=== PATIENT | female | born 1980 | race Caucasian/White ===

== ENCOUNTER 2025-05-12 07:39 | Outpatient (CLI) | payer OTHER, SELFPAY ==
--- OUTSIDE RECORDS SUMMARY | 2025-04-19 04:15 | XMS_ITS | Continuity of Care Document ---
Author Organization [facility] Phone Care Team Providers Care Denture Technician Name Role Phone EVERETT LOUIEAIYANA Dewey Admitting DECLINED, PCP Primary Care Unavailable LIBANMUKUND KHALIL Maco Unavailable MUKUND LOUIE Primary Attending ALLERGIES AND ADVERSE REACTIONS ALLERGIES AND ADVERSE REACTIONS Code System Allergy Substance Adverse Reaction Date Reaction (Severity) Comment Status Reported By Updated By [id number] SNOMED CT Penicillins Adverse reaction to substance Not Specified active [id number] on September 26, 2024 2:53:32 AM [facility] [email or web address]] RESULTS Patient: MICKEY DUVAL Date of : February 24 0 LABORATORY RESULTS Information is not available LABORATORY NARRATIVE RESULTS Information is not available RADIOLOGY RESULTS ORDER 100: HERB DIAG MAMMO W CAD RT (LOINC: [id number]) ORDER DATE: April 15, 2025 12:03:00 PM [facility] [email or web address]] PERFORMING LAB: [address] [id number] Final Result Date: April 15 12:23:[address] [place] [address] Name: MUKUND AREVALO Exam Date: 04/15/2025 : 1980 Age 45 years Gender: F Physician: MUKUND LOUIE Facility: [facility] Facility HSV: Outpatient Exam: HERB DIAG MAMMO W CAD RT Exam: 1.Right Diagnostic Mammogram with 2D and 3D (tomosynthesis)imaging 2.Right Breast Ultrasound Clinical indication: Recall upper inner right breast focal asymmetry Comparison: Exams to 03/17/2025 TECHNIQUE: Diagnostic Right 2D mammography and 3D (tomosynthesis) imaging were performed.Targeted ultrasound assessing mace-scale and color flow performed. BREAST DENSITY:The breasts are heterogeneously dense, which may obscure small masses. FINDINGS: Mammography: Persistent upper inner right breast focal asymmetry further evaluated with sonography Ultrasound: Right breast, 2:00, 7 cm from the nipple, there is a 14 x 9 x 13 mm hypoechoic mass/nonmass area corresponding to the inner asymmetry IMPRESSION: Indeterminate right breast 2:00 mass/nonmass hypoechoic area corresponding to the inner asymmetry Recommendation: Right breast ultrasound-guided biopsy with correlation with clip placement. The results of this report will be reported to the patient by letter in layman's terms. ACR BI-RADS:4 - Suspicious abnormality Mammography does not detect approximately 10-15% of breast cancers. A normal mammogram does not exclude breast cancer in a patient with palpable mass or abnormal findings on physical examination. These patients may need biopsies and when clinically indicated a biopsy should not be postponed because of a normal mammogram. If the patient has breast surgery or biopsy, FDA/SA Regulatory Guidelines mandate that this facility receive pathologic results for follow-up correlation. Electronically signed by: Leroy Mehta MD 04/15/2025 08:48 AM EDT RP Dictated By: Leroy Mehta Transcribed By: Transcribed On: 04/15/2025 8:23 AM Legally authenticated by ZOEY THOMAS MD 2025-04-15 08:23:00 Electronically signed by: Leroy Mehta 04/15/2025 Thank you for referring MUKUND AREVALO to [facility]. Legally authenticated by ZOEY THOMAS MD 2025-04-15 08:23:00 ORDER 200: US BREAST LIMITED RT (LOINC: [id number]) ORDER DATE: April 15, 2025 12:03:00 PM [facility] [[email or web address]] PERFORMING LAB: [address] [id number] Final Result Date: April 15 12:45:[address] [place] [address] Name: MUKUND AREVALO Exam Date: 04/15/2025 : 1980 Age 45 years Gender: F Physician: MUKUND LOUIE Facility: [facility] Facility HSV: Outpatient Exam: US BREAST LIMITED RT Exam: 1.Right Diagnostic Mammogram with 2D and 3D (tomosynthesis)imaging 2.Right Breast Ultrasound Clinical indication: Recall upper inner right breast focal asymmetry Comparison: Exams to 03/17/2025 TECHNIQUE: Diagnostic Right 2D mammography and 3D (tomosynthesis) imaging were performed.Targeted ultrasound assessing mace-scale and color flow performed. BREAST DENSITY:The breasts are heterogeneously dense, which may obscure small masses. FINDINGS: Mammography: Persistent upper inner right breast focal asymmetry further evaluated with sonography Ultrasound: Right breast, 2:00, 7 cm from the nipple, there is a 14 x 9 x 13 mm hypoechoic mass/nonmass area corresponding to the inner asymmetry IMPRESSION: Indeterminate right breast 2:00 mass/nonmass hypoechoic area corresponding to the inner asymmetry Recommendation: Right breast ultrasound-guided biopsy with correlation with clip placement. The results of this report will be reported to the patient by letter in layman's terms. ACR BI-RADS:4 - Suspicious abnormality Mammography does not detect approximately 10-15% of breast cancers. A normal mammogram does not exclude breast cancer in a patient with palpable mass or abnormal findings on physical examination. These patients may need biopsies and when clinically indicated a biopsy should not be postponed because of a normal mammogram. If the patient has breast surgery or biopsy, FDA/SA Regulatory Guidelines mandate that this facility receive pathologic results for follow-up correlation. Electronically signed by: Leroy Mehta MD 04/15/2025 08:48 AM EDT Dictated By: Leroy Mehta Transcribed By: Transcribed On: 04/15/2025 8:45 AM Legally authenticated by ZOEY THOMAS MD 2025-04-15 08:45:00 Electronically signed by: Leroy Mehta 04/15/2025 Thank you for referring MUKUND AREVALO to [facility]. Legally authenticated by ZOEY THOMAS MD 2025-04-15 08:45:00 PATHOLOGY NARRATIVE RESULTS Information is not available MICROBIOLOGY RESULTS No Micro Labs/Results Exist for Patient BLOOD ADMIN RESULTS Information is not available MEDICATIONS HOME MEDICATIONS Status RXNORM NDC Medication Dose Route Frequency Dates Comments Reported By Updated By Drug Treatment Unknown DISCHARGE MEDICATIONS Status RXNORM NDC Medication Dose Route Frequency Dates Comments Physician Updated By No Discharge Medication Info rmation Available INPATIENT MEDICATIONS Status RXNORM NDC Medication Dose Route Frequency Rat e Quantity Dates Comments Physician Updated By No Inpatient Medication Info rmation Available SOCIAL HISTORY SOCIAL HISTORY SNOMED-CT Social History Element Description Effective Dates Offered Cessation Comment UpdatedBy [id number] Smoking Status Unknown If Ever Smoked SOCIAL HISTORY - Gender Sex: Female SOCIAL HISTORY - Status : status i nformation is not available Intention in Next Year: intention information is not available SOCIAL HISTORY - Sexual Behavior Sexual Orientation Gender Identity SNOMED-CT Description SNO MED -CT Description Activity Level No of Partners Partner Type UpdatedBy Information is not available HEALTH CONCERNS Problems Concern Status Health Concern problem infor mation not available. Smoking Status Status Years Used Consumed packs p er day Health Concern smoking histo ry information not available. Family History Concern Status Health Concern family histor y information not available. ENCOUNTERS ENCOUNTER INFORMATION Reason for Visit R92.8 Admission April 15, 2025 11:55:[address] [address] Discharge April 15, 2025 5:55:00 PM [facility] [email or web address]] DISC HARGED TO HOME OR SELF CARE ENCOUNTER DIAGNOSES Notes information is not torsten ilable. Code System Diagnosis Onset Date Diagnosis information is not available. ABSTRACT DIAGNOSES Code System Diagnosis Updated By R92.8 ICD10 OTHER ABNORMAL A ND INCONCLUSIVE FINDINGS ON DIAGNOSTIC IMAGING OF BREAST [id number] on March 30, 2025 3:05:07 PM [facility] [email or web address]] R92.8 ICD10 OTHER ABNORMAL A ND INCONCLUSIVE FINDINGS ON DIAGNOSTIC IMAGING OF BREAST [id number] on April 19, 2025 8:15:02 AM [facility] [email or web address]] CARE TEAM Care Denture Technician Role MUKUND LOUIE Admitting PCP DECLINED Primary Care MUKUND LOUIE Referring MUKUND LOUIE Primary Attending CARE TEAM CARE claims coordinator Role on Team Status Start Date End Date Update d By DECLINED PCP PCP normal April 15, 2025 4:00:00 AM [facility] [[email or web address]] April 15, 2025 5:55:00 PM [facility] [[email or web address]] [id number] on April 15, 2025 6:21:00 PM [facility] [[email or web address]] ESTRELLITA CARLSON MD PCP normal March 30 3:05:08 PM [facility] [[email or web address]] April 15, 2025 4:00:00 AM [facility] [[email or web address]] [id number] on April 15, 2025 6:21:00 PM [facility] [email or web address]] LIBAN Dewey APRN Referring normal March 30, 2025 3:05:08 PM [facility] [[email or web address]] April 15, 2025 5:55:00 PM [facility] [[email or web address]] [id number] on April 15, 2025 6:21:00 PM [facility] [[email or web address]] LIBAN Dewey APRN Attending normal March 30, 2025 3:05:08 PM [facility] [[email or web address]] April 15, 2025 5:55:00 PM [facility] [[email or web address]] [id number] on April 15, 2025 6:21:00 PM [facility] [email or web address]] LIBAN Dewey APRN Admitting normal March 30, 2025 3:05:08 PM [facility] [[email or web address]] April 15, 2025 5:55:00 PM [facility] [[email or web address]] [id number] on April 15, 2025 6:21:00 PM [facility] [[email or web address]]
--- NOTE | 2025-05-12 | US_ITS ---
FINAL REPORT CLINICAL HISTORY: ABNORMAL MAMM -- RT BREAST MASS - DR.ALEX PRADO FINDINGS: ULTRASOUND-GUIDED RIGHT BREAST CORE BIOPSY TECHNIQUE: Limited images were obtained to localize region of interest. The right breast was prepped in a routine sterile fashion and locally anesthetized with 1% lidocaine. Standard written informed consent was obtained. The biopsy needle was positioned within the outer periphery of the lesion. Subtle area of interest was localized at approximately 2:00. A total of 3 passes were made with a 16 gauge core biopsy needle. A biopsy marker clip was deployed in satisfactory position. Postbiopsy mammogram showed postbiopsy changes with clip in satisfactory position. Procedure was well tolerated . CONCLUSION: 1. Technically successful ultrasound guided core biopsy of right breast lesion as above. 2. Biopsy marker clip deployed Authenticated and ERN
--- OUTSIDE RECORDS SUMMARY | 2025-05-12 07:43 | XMS_ITS | Clinical Summary ---
Author Organization Healthcare Address [address] [place] [address] Care Team Providers Care Store Cashier Name Role Phone Unavailable Primary Care Provider Unavailabl e Family History Medical History Relation Name Comments Cardiac disorder Father Diabetes Mother Relation Name Status Comments Father Mother Social History Tobacco Use Types Packs/Day Years Used Date Smoking Tobacco: Every Day Alcohol Use Standard Drinks/Week Comments No 0 (1 standard drink = 0.6 oz pur e alcohol) Comments Unknown Sex and Gender Information Value Date Recorded Sex Assigned at Not on file Legal Sex Female 8:23 PM EDT Gender Identity Not on file Sexual Orientation Not on file Last Filed Vital Signs Vital Sign Reading Time Taken Comments Blood Pressure - - Pulse - - Temperature - - Respiratory Rate - - Oxygen Saturation - - Inhaled Oxygen Concentration - - Weight 105 kg (230 lb 13.2 oz) 03/05/2016 10:47 AM EDT Height 162.6 cm (5' 4 ) 01/30/2016 11:22 AM EST Body Mass Index 39.62 01/30/2016 11:22 AM EST Plan of Treatment Not on file
--- OUTSIDE RECORDS SUMMARY | 2025-05-12 07:44 | XMS_ITS | Patient Health Record ---
Author Organization [facility] Address [address] [place] [address] Care Team Providers Care Animal Chiropractor Name Role Phone payal lerma Primary Care Provider [place], [id number] Felipa Unavailable [phone] Courtney Briggs Unavailable [phone] Allergies Allergen (clinical drug ingredient) Drug/Non Drug Allergy documented on EMR Reaction Allergy Type Onset Date Status Penicillin rash Drug Allergy Active Results Component Value Reference Range Notes Flu/COVID Rapid Antigen (IH) Reviewed date:11/15/2024 10:05:57 AM Interpretation:Positive Performing Lab: Notes/Report: Positive Flu A negative Negative - Positive Flu B positive Negative - Positive SARS CoV 2 positive Negative - Positive Rapid Strep Screen (IH) Reviewed date:02/11/2025 10:57:58 AM Interpretation:Negative Performing Lab: Notes/Report: Negative Negative NEG Reason For Referral No Information Medications Medication SIG (Take, Route, Frequency, Duration) Notes Start Date End Date Status Fluticasone Furoate 27.5 MCG/SPRAY 2 sprays (1 spray in each nostril) Nasally Once a day for 30 days 02/11/2025 Active Albuterol Sulfate HFA 108 (90 Base) MCG/ACT 1 puff as needed Inhalation every 4 hrs for 30 days 04/17/2024 Not-Taking Stahist AD 25-60 MG 1 tablet as needed Orally every 8 hrs for 15 days 09/09/2023 Not-Taking Albuterol Sulfate HFA 108 (90 Base) MCG/ACT 1 puff as needed Inhalation every 4 hrs for 30 days 10/02/2023 Not-Taking Wellbutrin SR 150 MG 1 tablet in the mor fernando Orally Once a day 02/11/2025 Active Strattera 25 MG 1 capsule Orally Twi ce a day Active Levothyroxine Sodium 175 MCG 1 tab(s) orally once a day Active Flonase Allergy Relief 50 MCG/ACT 1 spray(s) intranasally once a day for 30 day(s) 03/16/2019 Not-Taking Adderall 10 MG 1 tab(s) orally 2 ti mes a day Not-Taking Levemir 100 UNIT/ML 0 subcutaneously 16 units Not-Taking Azithromycin 250 MG 2 tablets on the day, then 1 tablet daily for 4 days orally once a day for 5 day(s) 03/16/2019 Not-Ambar snow Social History Tobacco Use: Social History Observation Description Date Details (start date - stop date) Never Smoker NA - NA Tobacco Control (Standard) Question Answer Notes Tobacco use: Nonsmoker Section Notes: patient dosent use tobacco p roducuts patient dosent use tobacco p roducuts patient dosent use tobacco p roducuts patient dosent use tobacco p roducuts patient dosent use tobacco p roducuts patient dosent use tobacco p roducuts patient dosent use tobacco p roducuts Problems Problem Type SNOMED Code ICD Code Onset Dates Problem Status W/U Status Risk Notes Problem [id number] Elevated blood pressure reading without diagnosis of hypertension (R03.0) Active confirmed Problem Anxiety (54964046) Anxiety (F41.9) Active confirmed Problem Hypothyroidism (78657801) Hypothyroidism (E03.9) Active confirmed Problem Type II diabetes mellitus well controlled (052115169) Diabetes type 2, controlled (E11.9) Active confirmed Problem Obesity (773956100) Obesity (BMI 30-39.9) (E66.9) Active confirmed Problem Attention deficit hyperactivity disorder (920937727) ADHD (F90.9) Active confirmed Problem Depression (519919277) Depression (F32.A) Active confirmed Vital Signs Temperature 97.7 degrees Fahrenheit 02/11/2025 Respiratory Rate 19 /min 02/11/2025 Blood pressure diastolic 82 mm Hg 02/11/2025 Height 064 in 02/11/2025 Blood pressure systolic 126 mm Hg 02/11/2025 Weight 0185 lbs 02/11/2025 BMI 31.75 kg/m2 02/11/2025 Encounters Encounter Location Date Provider Diagnosis [address] [address] [facility] ; Acute COVID-19 U07.1 ; Elevated blood pressure reading without diagnosis of hypertension R03.0 and Obesity (BMI 30-39.9) E66.[id number] [address] 11/15/2024 Felipa [place] [address] [address] 02/11/2025 Courtney Briggs Nasopharyngitis acut e J00 and Sore throat J02.9 Assessments Encounter Date Diagnosis (ICD Code) Assessment Notes Treatment Notes Treatment Clinical Notes Section Notes 11/15/2024 Influenza B (ICD-10 - J10.1) Influenza (Flu): Care Instructions material was published 11/15/2024 Acute COVID-19 (ICD-10 - U07.1) Coronavirus (COVID-19): Care Instructions material was published Declines treatment for both Flu and covid 19 at todays visit. 02/11/2025 Sore throat (ICD-10 - J02.9) Warm salt water gargles three times a day to help reduce throat inflammation Warm tea with honey as needed to soothe throat 02/11/2025 Nasopharyngitis acute (ICD-10 - J00) Take OTC cold and flu medication to treat symptoms as directed Take flonase nasal spray routinely as directed during and after illness symptoms have resolved to help managed seasonal allergies Tylenol or Advil for fever/chills or body aches if these develop Ensure maintaining adequate hydration during illness Follow up 2-3 days for persistent or worsening symptoms 11/15/2024 Elevated blood pressure reading without diagnosis of hypertension (ICD-10 - R03.0) Learning About High Blood Pressure material was published 11/15/2024 Obesity (BMI 30-39.9) (ICD-10 - E66.9) Learning About Obesity material was published Plan Of Treatment Pending Test Test Name Order Date STREPTOCOCCUS, GROUP A CULTURE 4 Insurance Providers Payer Name Payer Address Payer Phone Subscriber Number Group Number Insured Name Patient Relationship to Insured Coverage Start Date Coverage End Date [employer] [address] JESSICA CAMARENA, JOHN [phone] [id number] [address] [place], [place] [address]Esther cummins Self - patient is the insured Medical (General) History Medical History History ICD Code Hypothyroidism E03.9 Depression F32.A Anxiety F41.9 ADHD F90.9 Diabetes type 2, controlled E11.9 Surgical History Surgery Date(Month/Year) gastric bypass 2022 C section 2016 gallbladder 2014 Hospitalization History Reason Date(Month/Year) gastric bypass
--- OUTSIDE RECORDS SUMMARY | 2025-05-12 07:44 | XMS_ITS | Clinical Summary ---
Author Organization [employer] Address [address] [place] [address] Care Team Providers Care Garment Looper Name Role Phone Claude Genao MD Primary Care Provider [phone] Allergies Active Allergy Reactions Criticality Noted Date Comments Penicillins Hives High 09/16/2010 Medications levothyroxine (SYNTHROID, LEVOTHROID) 175 MCG tablet Take 1 tablet (175 mcg total) by mouth daily. 12/27/2022 Active fluticasone propionate (FLONASE) 50 mcg/actuation nasal spray 1 spray by Nasal route daily. Active omeprazole (PriLOSEC) 20 MG capsule Take 1 capsule (20 mg total) by mouth in the morning. 30 capsule 2 04/16/2023 Active tiZANidine (ZANAFLEX) 4 MG tablet Take 1 tablet (4 mg total) by mouth 2 (two) times daily. 04/09/2023 Active albuterol HFA (VENTOLIN HFA) 90 mcg/actuation inhaler 1 puff every 4 (four) hours as needed. 10/02/2023 Active Active Problems Problem Noted Date Diagnosed Date Depression 04/15/2023 Hypothyroid 04/15/2023 Diabetes mellitus 04/15/2023 Class 2 obesity in adult 04/15/2023 Obesity 04/15/2023 Social History Tobacco Use Types Packs/Day Years Used Date Smoking Tobacco: Never Smokeless Tobacco: Never Tobacco Cessation:Counseling Given: Not Answered Alcohol Use Standard Drinks/Week Comments Not Currently 0 (1 standard drink = 0.6 oz pur e alcohol) Social Interpersonal Safety Answer Date Record ed Family or friends hurt you Not on file 12/06 Family or friends insult you Not on file 10/2024 Family or friends threaten you Not on file 0 12/06/2023 Family or friends scream or curse at you Not on file 12/06/2023 Housing Stability Answer Date Recorded Living situation today Not on file Living situation problems Not on file 2023 Food Insecurity Answer Date Recorded Food run out past 12 months Not on file 11/25 Food did not last past 12 months Not on file 12/06/2023 Employment Answer Date Recorded Help finding and keeping a job Not on file 0 12/06/2023 Family and Community Support Answer Gaudencio e Recorded Help with Day to Day Activities Not on file 12/06/2023 Feeling Lonely or Isolated Not on file 12/06 Educational Attainment Answer Date Madi rded Speak language other than Mosotho at home Not on file 12/06/2023 Want help with school or training Not on file 12/06/2023 Depression Answer Date Recorded PHQ-2 Risk Not on file 12/06/2023 Disabilities Answer Date Recorded Difficulty concentrating Not on file 024 Difficulty doing errands alone Not on file 0 12/06/2023 Substance Use Answer Date Recorded Used prescription meds for non-medical reasons N ot on file 12/06/2023 Used illegal drugs past 12 months Not on file 12/06/2023 Comments Unknown Sex and Gender Information Value Date Recorded Sex Assigned at Not on file Legal Sex Female 7:17 PM CDT Gender Identity Not on file Sexual Orientation Not on file Last Filed Vital Signs Vital Sign Reading Time Taken Comments Blood Pressure 120/80 10/29/2023 8:37 AM EST Pulse 68 10/29/2023 8:37 AM EST Temperature 36.9 C (98.5 F) 04/23/2023 8:49 AM EDT Respiratory Rate 16 04/16/2023 9:45 AM EDT Oxygen Saturation 98% 04/16/2023 9:45 AM EDT Inhaled Oxygen Concentration - - Weight 83.8 kg (184 lb 12.8 oz) 10/29/2023 8:37 AM EST Height 162.6 cm (5' 4 ) 03/11/2023 8:41 AM EDT Body Mass Index 31.72 03/11/2023 8:41 AM EDT Plan of Treatment Health Maintenance Due Date Last Done Comments CT Colonography 1980 Colonoscopy 1980 Colorectal Cancer Screening 1980 Diabetic Kidney Health Evalu ation (KED) 1980 FOBT/FIT 1980 Fit-DNA (Cologuard) 1980 Sigmoidoscopy 1980 Diabetic Eye Exam 02/24/1990 Diabetic foot exam 02/24/1990 HIV Screening 02/24/1995 Hepatitis C Screening 02/24/1998 DTAP/TDAP/TD VACCINES (1 - Tdap) 02/24/1999 Pneumococcal Vaccine: 0-49 Y ears (1 of 2 - PCV) 02/24/1999 Pap Smear 02/24/2001 Breast Cancer Screening 2020 Hemoglobin A1C 04/29/2024 10/29/2023, 0711/2022, 03/04/2023 COVID-19 VACCINE ( season) 07/26/202409/2022, 01/27/2021 Tobacco Cessation Counseling and Screening (12+) 10/29/2024 10/29/2023 Influenza Vaccine (Season Ended) 2025 09/23/20 18 Lipid Panel 03/04/2026 03/04/2023 Procedures Procedure Name Priority Date/Time Associated Diagnosis Comments HEMOGLOBIN A1C Routine 10/29/2023 9:26 AM EST Class 1 obesity due to excess calories without serious comorbidity with body mass index (BMI) of 31.0 to 31.9 in adult LIPID PANEL Routine 03/04/2023 10:13 AM EDT Pre-op evaluation Morbid obesity (HCC) Hypothyroidism, unspecified type Gastroesophageal reflux disease, unspecified whether esophagitis present Type 2 diabetes mellitus with hyperosmolarity without coma, without long-term current use of insulin (HCC) from Last 3 Months or Most Recently Relevant to Health Maintenance Results * (ABNORMAL) Hemoglobin A1c (10/29/2023 9:26 AM EST) Hemoglobin A1C 6.6(H) 4.2 - 6.3 % 10/29/2023 11:19 AM EST [facility] Comment: Hemoglobin A1C levels are related to mean glucose during the preceding 2-3 months. Less than 7% demonstrates glycemic control in diabetic patients. Hemoglobin AlC % Suggested Diagnosis > or = 6.5 Diabetic 5.7 - 6.4 Prediabetic <5.7 Non-diabetic eAVG Glucose 142.72 mg/dL 10/29/2023 11:19 AM EST [facility] Blood Venipuncture / Unknown 10/29/2023 9:26 AM EST 10/29/2023 9:27 AM EST us Girish Napoles MD LAB BLOOD ORDERABLES Final Resu lt [facility] [address] [phone] * (ABNORMAL) Lipid panel (03/04/2023 10:13 AM EDT) Triglycerides 418(H) 0 - 249 mg/dL 03/04/2023 1:02 PM EDT [facility] Cholesterol 274(H) 0 - 199 mg/dL 03/04/2023 1:02 PM EDT [facility] Comment: 200 to 239 mg/dL = Moderate (borderline) >239 mg/dL = High HDL Cholesterol 43 >=40 mg/dL 03/04/2023 1:02 PM T [facility] Comment: >=60 mg/dL = Desirable <40 mg/dL = Increased Risk All other components are listed individually or are calculations VLDL Cholesterol 03/04/20 1:02 PM EDT [facility] Comment:Unable to Calculate VLDL due to Triglyceride >399 mg/dL Cholesterol/HDL ratio 6.4(H) 0.0 - 3.2 03/04/2023 1:02 PM EDT [facility] LDl/HDL Ratio 03/04/2023 1:02 [facility] Comment:Unable to calculate; LDL not reported. RISK COMP 6 03/04/2023 1:02 PM [facility] LDL Cholesterol, Calculated 03/04/2023 1:02 PM [facility] Comment:Unable to Calculate LDL due to Triglyceride >399 mg/dL Blood Venipuncture / Unknown 03/04/2023 10:13 AM EDT 03/04/2023 12:17 PM EDT us Monique Theodore PA-C LAB BLOOD ORDERABLES Fi nal Result [facility] [address] [place] [id number] [phone] from Last 3 Months or Most Recently Relevant to Health Maintenance Insurance BLUE CROSS/BLUE SHIELD Advance Directives For more information, please contact: [phone] * Full Code (Latest Code Status on File) Date Activated Date Inactivated Comments 04/15/2023 2:29 PM 04/16/2023 3:15 PM * Full Code Date Activated Date Inactivated Comments 04/15/2023 7:59 AM 04/15/2023 2:29 PM Care Teams Garment Looper Relationship Specialty Start Date End Date Claude Genao MD [address] [place] [address] PCP - General Emergency Medicine 01/15/23
--- OUTSIDE RECORDS SUMMARY | 2025-05-12 07:44 | XMS_ITS | Data Portability ---
Author Organization [facility] NORM Peña PALMER CLOS[facility] Address [address] [facility] [place] [address] Assessment No assessment recorded. Plan of Treatment Reminders Order Date Submit Date Provider Last Modified By Organization Details Last Modified Time Details Appointments None recorded. Lab None recorded. Referral None recorded. Procedures None recorded. Surgeries None recorded. Imaging None recorded. Medication Orders Maxalt-MIXER TENDER 10 mg disintegra ting tablet 2016 017 INTERFACE [facility] [id number], [address] [place], [address], 7 09:22:05 tizanidine 4 mg tablet 2016 017 INTERFACE [facility] [id number], [address] [place], [address], 7 09:22:03 Patient TargetsNo targets recorded. Patient Instructions Encounter Date Encounter Id Patient Instructions Last Modified By Organization Details Last Modified Time 09/09/2017 [id number] A healthy lifestyle: care instructions ALBERT Not available 09/11/2017 19:35:54 migraine aura without a headache: care instructions ALBERT Not available 09/11/2017 19:39:59 Continue Zanafle x 4 mg at bedtime. Maxalt MIXER TENDER 10 mg as needed. Return in one year. [email or web address] Not available 09/09/2017 09:22:13 Reason for Referral None Reported. Problems Name Problem SNOMED Code Status Onset Date Resolution Date Notes Provider Name and Address Organization Details Recorded Time Migraine with aura 2228404 Active 2015 From Automated Load;Provi lakshmi: Gabo De Dios; atus: Active Not Available [facility] 7 07:39:31 Neuropath y 465653781 Active 2016 Altagracia beckham [facility] 7 09:12:00 Problem Notes None recorded. Procedures Surgical History Date Name Laterality Status Provider Name and Address Organization Details Recorded Time Cholecystectomy completed Coco Madrigal [facility] 09/05/2017 10:31:53 Imaging Results None recorded. Procedure Notes None recorded. Medical Equipment None Reported. Allergies Allergen ID Allergen Name Allergen Category Reaction Reaction Severity Criticality Documentation Date Start Date Code Code System Note Provider Name and Address Organization Details Recorded Time 168709 Product containin g penicilli n (product) medicatio n Not available Not available Not available 10/19/20162009 46767 8001 SNOMED Comme nt: Creat ed By: Myles Rice aldo Date: 09/16 12:04 :52 PM; Not Available [facility] 6 10:24:01 Medications Name Sig Start Date Stop Date Status Note LastModified by Organization Details LastModified Time Maxalt-MIXER TENDER 10 mg disintegra ting tablet 1 tablet daily as needed for headache 2016 active Duration: 6 days;Freq uency: daily;Alt Frequency : prn pain;Medi cation Descripti on: rizatript an; Dosage:1; Route:ora l; refills:1 2; Quantity: 6 tablet, disintegr ating Not Available Not Available Not Available glyburide 5 mg tablet Daily active Duration: 30 days;Freq uency: daily;Med ication Descripti on: glyburide ; Dosage:1; Route:ora l; refills:0 ; Quantity: 30 tablet Not Available Not Available Not Available tizanidine 4 mg tablet Take 1 at bedtime to prevent migraine 2016 active Medicatio n Descripti on: tizanidin e; Route:ora l; refills:0 Not Available Not Available Not Available metformin 1,000 mg tablet Two times a day active Frequency : bid;Alt Frequency : with food;Medi cation Descripti on: metformin ; Dosage:1; Route:ora l; refills:5 ; Quantity: 60 tablet Not Available Not Available Not Available Synthroid Daily active Frequency : daily;Med ication Descripti on: levothyro xine; refills:0 ; Quantity: 30 Not Available Not Available Not Available Levemir U-100 Insulin 100 unit/mL subcutaneo us solution active Medicatio n Descripti on: insulin detemir; Route:sub cutaneous ; refills:0 Not Available Not Available Not Available Vitals Date Recorded Body height Body mass index (BMI) Body weight Heart rate Respiratory rate Systolic blood pressure Diastolic blood pressure Provider Name and Address Organization Details Last Updated DateTime 7 165.1 cm 8.3 kg/m2 05700.6 2 g 78 /min 17 /min 122 mm[Hg] 67 mm[Hg] GABO DE DIOS MD [address] [place] [address], [id number] [place] [address] 7 09:19:05 Social History Question Answer Notes LastModified by Organizat ion Details LastModified Time Tobacco Smoking Status Never Smoker Coco Madrigal [facility] 09/05/2017 10:31:27 Live Alone Or With Others? With Others Information not available 09/05/2017 Marital Status Informatio n not available 09/05/2017 What Was The Date Of Your Most Recent Tobacco Screening? 09/05/2017 Information n ot available 01/12/2020 Sex: Unknown Functional Status Question Answer Note LastModified by Organizat ion Details LastModified Time What is your level of alcohol consumption? Occasional Information not available 09/05/2017 Mental Status None recorded. Family History Relationship Description Onset Age of this Age Resolved Age Notes LastModified by Organization Details LastModified Time Maternal Grandmother Diabetes mellitus Not available 2016 10:31:17 Maternal Grandmother Heart disease Not available 2016 10:31:21 Medical History Condition Response Depression Y Migraines Y High Cholesterol Y Diabetes Y Gynecological HistoryNo gynecological history recorded. Obstetrics History GPAL:G 0 P 0 0 0 0 Past Encounters Encounter ID Performer Location Encounter Start Date Encounter Closed Date Diagnosis/Indication Diagnosis SNOMED-CT Code Diagnosis ICD10 Code Diagnosis Note [id number] GABO DE DIOS MD NEUROLOGY [facility] [address] [place] [address] 09/09/2017 09:07:55 09/09/2017 09:23:14 Migraine with aura 3103761 G43.109 The patient is a 37-year-ol d white female who has episodic migraine. Health Concerns Section Related Observation LastModified by Organization Detai ls LastModified Time None Recorded Concern Status LastModified by Organization Details LastModified Time None Recorded Advance Directives Directive None Recorded Payers Insurance Date Sequence Insurance Name Policy Number Policy Martel Covered Member ID Martel Member ID Guarantor Name 01/30/2019 1 *SELF PAY* Sa marcelo Fightmaster 10/19/2020 1 [place] [id number] Esther Fightmaster [id number] Esther Fightmaster Notes Date Note Type Note Provider Name and Address Organization Details Recorded Time 09/09/2017 text/html 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 She has migraine. She also has diabetes. She has a insulin pump. Her hemoglobin A1c has increased to 7. She had gained weight. She has migraine. She takes Zanaflex 4 mg at bedtime as headache prophylaxis. Maxalluisa MIXER TENDER works. She is averaging 1 headache a month. She has a son who is almost 2 years old. Her work is stressful.. GABO DE DIOS MD [facility] [place], [address], [facility] 09/09/2017 09:22:52 OBGyn Episode No OBEpisode recorded.
--- OUTSIDE RECORDS SUMMARY | 2025-05-12 07:44 | XMS_ITS | Data Portability ---
Author Organization [place] - Hugo camargo MD, Main Office Address [address] [facility] [address] [place] [address] Care Team Providers Care Automotive Technician Name Role Phone JAIR TOLENTINO Primary Care Provider Assessment No assessment recorded. Plan of Treatment Reminders Order Date Submit Date Provider Last Modified By Organization Details Last Modified Time Details Appointments None recorded. Lab None recorded. Referral None recorded. Procedures None recorded. Surgeries None recorded. Imaging None recorded. Medication Orders propranolol 20 mg tablet 2017 018 [facility] [id number], [address] [place], [address], 9 09:59:53 rizatriptan 10 mg disintegrat ing tablet [address] [facility] [id number], [address] [place], [address], 9 09:59:56 Patient TargetsNo targets recorded. Patient Instructions Encounter Date Encounter Id Patient Instructions Last Modified By Organization Details Last Modified Time 09/16/2018 [id number] MIGRAINE EDUCATION Not availa ble 09/16/2018 15:24:20 Finding has been discussed with the patient in detail. Continue vitamin and folic acid. Propranolol 20 mg 1 at bedtime as headache prophylaxis. Maxalt CORPORATE COUNSELOR as needed. Return in one year. We discussed , teratogenicity and medication. Not available 09/16/2018 15:24:59 09/14/2019 [id number] MIGRAINE EDUCATION Not availa ble 09/14/2019 10:02:01 Finding has been discussed with the patient in detail. She is to return as needed. Not available 09/14/2019 10:02:00 Reason for Referral None Reported. Problems Name Problem SNOMED Code Status Onset Date Resolution Date Notes Provider Name and Address Organization Details Recorded Time Migraine 02325303 Active 018 LONA Chong MD 09/16/2018 14:25:06 Problem Notes None recorded. Procedures Surgical History Date Name Laterality Status Provider Name and Address Organization Details Recorded Time Cholecystectomy completed Altagracia Navarro MD 09/16/2018 14:25:15 Imaging Results None recorded. Procedure Notes None recorded. Medical Equipment None Reported. Allergies Allergen ID Allergen Name Allergen Category Reaction Reaction Severity Criticality Documentation Date Start Date Code Code System Note Provider Name and Address Organization Details Recorded Time 1969 Product containin g penicilli n (product) medicatio n Not available Not available Not available 09/16/2018 00437 8001 SNOMED LONA Chong MD 8 14:25:01 Medications Name Sig Start Date Stop Date Status Note LastModified by Organization Details LastModified Time methocarbam ol 500 mg tablet 09/14 completed Not Available Not Available Not Available levothyroxi ne 175 mcg tablet active Not Available Not Available Not Available doxycycline hyclate 100 mg capsule 09/15 completed Not Available Not Available Not Available tizanidine 4 mg tablet 09/16 completed Not Available Not Available Not Available fluconazole 150 mg tablet 09/15 completed Not Available Not Available Not Available ciprofloxac in 500 mg tablet 09/15 completed Not Available Not Available Not Available tramadol 50 mg tablet 09/14 completed Not Available Not Available Not Available terbinafine HCl 250 mg tablet active Not Available Not Available Not Available dextroamphe tamine-amph etamine ER 20 mg 24hr capsule,ext end release 09/15 completed Not Available Not Available Not Available rizatriptan 10 mg disintegrat ing tablet 1 daily as needed for migraine 09/14 completed Not Available Not Available Not Available nystatin 100,000 unit/gram topical cream 09/16 completed Not Available Not Available Not Available levothyroxi ne 150 mcg tablet 09/15 completed Not Available Not Available Not Available nystatin-tr iamcinolone 100,000 unit/g-0.1 % topical cream 09/14 completed Not Available Not Available Not Available dextroamphe tamine-amph etamine ER 10 mg 24hr capsule,ext end release 09/14 completed Not Available Not Available Not Available Novolog U-100 Insulin aspart 100 unit/mL subcutaneou s solution 09/15 completed Not Available Not Available Not Available propranolol 20 mg tablet One tablet at bedtime to prevent headache 09/14 completed Not Available Not Available Not Available bromphenira mine-pseudo ephedrine-D M 2 mg-30 mg-10 mg/5 mL oral syrup 09/15 completed Not Available Not Available Not Available fluticasone propionate 50 mcg/actuati on nasal spray,suspe nsion 09/14 completed Not Available Not Available Not Available Adderall 10 mg tablet Take 1 tablet every day by oral route. active Not Available Not Available No t Available Paradigm Cocoa 3 mL 09/14 completed Not Available Not Available Not Available Minimed Infusion Set 09/14 completed Not Available Not Available Not Available Strattera 10 mg capsule 09/16 completed Not Available Not Available Not Available Novolog FlexPen U-100 Insulin aspart 100 unit/mL (3 mL) subcutaneou s 09/14 completed Not Available Not Available Not Available bupropion HCl XL 150 mg 24 hr tablet, extended release 09/16 completed Not Available Not Available Not Available Aplenzin 174 mg tablet,exte nded release active Not Available Not Available Not Available Contour Next Test Strips 09/15 completed Not Available Not Available Not Available Levemir FlexTouch U-100 Insulin 100 unit/mL (3 mL) subcutaneou s pen 09/14 completed Not Available Not Available Not Available Vitals Date Recorded Body mass index (BMI) Body weight Heart rate Respiratory rate Systolic blood pressure Diastolic blood pressure Provider Name and Address Organization Details Last Updated DateTime 9 32.4 kg/m2 33850.5 1 g 80 /min 18 /min 116 mm[Hg] 76 mm[Hg] Hugo Navarro MD [address] [facility], [facility] [address], [place], [address] , LONA Navarro MD 9 09:58:17 Date Recorded Body height Provider Name an d Address Organization Details Last Updated DateTime 09/14/2019 165.1 cm Monique Simon LONA Navarro MD 09/14/2019 09:47:05 Date Recorded Body height Body mass index (BMI) Body weight Heart rate Respiratory rate Systolic blood pressure Diastolic blood pressure Provider Name and Address Organization Details Last Updated DateTime 8 165.1 cm 33.6 kg/m2 06968.6 6 g 73 /min 17 /min 112 mm[Hg] 67 mm[Hg] Hugo Navarro MD [address], [place], [address], LONA Navarro MD 8 15:21:43 Social History Question Answer Notes LastModified by Organizat ion Details LastModified Time Tobacco Smoking Status Never Smoker LONA Chong MD 09/16/2018 14:25:17 Live Alone Or With Others? With Others Information not available 09/16/2018 What Was The Date Of Your Most Recent Tobacco Screening? 09/14/2019 [email or web address] Information not available 09/14/2019 Sex: Unknown Functional Status Question Answer Note LastModified by Organization D etails LastModified Time What is your level of alcohol consumption? None Information not available 09/16/2018 Mental Status None recorded. Family History Nothing Reported. Medical History Condition Response Migraines Y Gynecological HistoryNo gynecological history recorded. Obstetrics History GPAL:G 0 P 0 0 0 0 Past Encounters Encounter ID Performer Location Encounter Start Date Encounter Closed Date Diagnosis/Indication Diagnosis SNOMED-CT Code Diagnosis ICD10 Code Diagnosis Note [id number] Hugo Navarro MD Main Office [address] [place] [address] 09/16/2018 14:22:30 09/16/2018 14:50:49 Migraine [id number] G43.909 The patient is a 38-year-ol d white female who has episodic migraine. [id number] Hugo Navarro MD Main Office [address] [place] [address] 09/14/2019 09:45:57 09/14/2019 09:58:04 Migraine 04314808 G43.909 The patient is a 39-year-ol d white female who has episodic migraine. She is doing well. She reported infrequent headaches. Health Concerns Section Related Observation LastModified by Organization Detai ls LastModified Time None Recorded Concern Status LastModified by Organization Details LastModified Time None Recorded Advance Directives Directive None Recorded Payers Insurance Date Sequence Insurance Name Policy Number Policy Martel Covered Member ID Martel Member ID Guarantor Name 09/11/2019 1 [place] [id number] Esther High [id number] Esther High Notes Date Note Type Note Provider Name a nm Address Organization Details Recorded Time 09/16/2018 text/html Mrs. High is a 38-year-old white female who works at the [employer]. She has migraine. Tizanidine gave her a hangover. She uses Maxalt as needed. She reported having more headaches. She is a diabetic. She no longer requires insulin pump. She is considering having a second child. She is on vitamin Hugo Navarro MD [address], [facility], [place], [address], LONA Navarro MD 09/16/2018 15:25:37 09/14/2019 text/html Esther is a 39-year-old white female. She has migraine. She works for the [employer] office. She has a 4-year-old son. She has been doing well. She reduced her stress level by changing her job. She is exercising. She no longer takes propranolol. She no longer takes insulin. She is seeing a psychiatric nurse for ADD and depression. She is on Adderall and Aplenzin. MD [address], [facility] [address], [place], [address], LONA Navarro MD 09/14/2019 10:02:38 OBGyn Episode No OBEpisode recorded.
--- OUTSIDE RECORDS SUMMARY | 2025-05-12 07:44 | XMS_ITS | Referral Summary ---
Author Organization [employer] Address [address] [place] [address] Care Team Providers Care Loading Unit Operator Name Role Phone Claude Genao MD Primary Care Provider [phone] Allergies Active Allergy Reactions Criticality Noted Date [...] Date Madi rded Speak language other than French at home Not on file 12/06/2023 Want [...] 03/11/2023 8:41 AM EDT Plan of Treatment Not on file Procedures Procedure Name Priority Date/Time Associated Diagnosis [...] - 6.3 % 10/29/2023 11:19 AM EST [facility] Comment: Hemoglobin A1C levels are related to mean glucose during the preceding 2-3 months. Less than 7% demonstrates glycemic control in diabetic patients. Hemoglobin AlC % Suggested Diagnosis > or = 6.5 Diabetic 5.7 - 6.4 Prediabetic <5.7 Non-diabetic eAVG Glucose 142.72 mg/dL 10/29/2023 11:19 AM EST [facility] Blood Venipuncture / Unknown 10/29/2023 9:26 AM EST 10/29/2023 9:27 AM EST us Girish Napoles MD LAB BLOOD ORDERABLES Final Resu lt [facility] [address] [phone] * (ABNORMAL) Lipid panel (03/04/2023 10:13 AM EDT) Triglycerides 418(H) 0 - 249 mg/dL 03/04/2023 1:02 PM EDT [facility] Cholesterol 274(H) 0 - 199 mg/dL 03/04/2023 1:02 PM EDT [facility] Comment: 200 to 239 mg/dL = Moderate (borderline) >239 mg/dL = High HDL Cholesterol 43 >=40 mg/dL 03/04/2023 1:02 PM EDT [facility] Comment: >=60 mg/dL = Desirable <40 mg/dL = Increased Risk All other components are listed individually or are calculations VLDL Cholesterol 03/04/20 1:02 PM EDT [facility] Comment:Unable to Calculate VLDL due to Triglyceride >399 mg/dL Cholesterol/HDL ratio 6.4(H) 0.0 - 3.2 03/04/2023 1:02 PM EDT [facility] LDl/HDL Ratio 03/04/2023 1:02 PM EDT [facility] Comment:Unable to calculate; LDL not reported. RISK COMP 6 03/04/2023 1:02 PM EDT [facility] LDL Cholesterol, Calculated 03/04/2023 1:02 PM EDT [facility] Comment:Unable to Calculate LDL due to Triglyceride >399 mg/dL Blood Venipuncture / Unknown 03/04/2023 10:13 AM EDT 03/04/2023 12:17 PM EDT Monique Theodore PA-C LAB BLOOD ORDERABLES Fi nal Result [facility] [address] [place] [address], [facility] [phone] from Last 3 Months or Most Recently Relevant to Health Maintenance Insurance [employer] Advance Directives For more information, please contact: [phone] * Full Code (Latest Code Status on File) Date Activated Date Inactivated Comments 04/15/2023 2:29 PM 04/16/2023 3:15 PM * Full Code Date Activated Date Inactivated Comments 04/15/2023 7:59 AM 04/15/2023 2:29 PM Care Teams Loading Unit Operator Relationship Specialty Start Date End Date Claude Genao MD [address] [place] [address] PCP - General Emergency Medicine 01/15/23
--- OUTSIDE RECORDS SUMMARY | 2025-05-12 07:44 | XMS_ITS | Data Portability ---
Author Organization [facility] [place] Address [address] [place] [address] Care Team Providers Care Paper Bag Inspector Name Role Phone CLAUDE GONZALEZ Primary Care Provider Assessment No assessment recorded. Plan of Treatment Reminders Order Date Submit Date Provider Last Modified By Organization Details Last Modified Time Details Appointments None recorded. Lab HbA1c (hemoglobin A1c), blood 2022 023 [facility] (Laboratory), [address] [place], [address], 3 08:09:00 Referral orthopedic surgeon referral 2022 023 jeferson Groves MD, [address] [facility], [facility] [address], [place], [address], 3 08:17:49 physical therapist referral 2022 023 [facility], [address] [place], [address], 3 08:17:52 Procedures None recorded. Surgeries None recorded. Imaging XR, hip, unilateral, 2 or 3 view - left hip 2022 023 [facility], [address] [place], [address], 3 17:07:30 XR, shoulder, 2 or more view - left shoulder 2022 023 [facility], [address] [place], [address], 3 08:33:22 MAMMO, screening, digital, bilateral 2022 023 [facility], [address] [place], [address], 3 07:55:27 Medication Orders Flonase Allergy Relief 50 mcg/actuati on nasal spray,suspe nsion 2022 023 [facility], [address] [place], [address], 3 09:13:52 omeprazole 20 mg capsule,del ayed release 2022 023 [facility], [address] [place], [address], 3 09:13:52 tizanidine 4 mg tablet 2022 023 [facility], [address] [place], [address], 3 09:13:51 Lantus U-100 Insulin 100 unit/mL subcutaneou s solution 2022 023 [facility] [address] [place], [address], 3 07:48:32 Vitamin D3 125 mcg (5,000 unit) tablet 2022 023 [facility], [address] [place], [address], 3 09:13:52 levothyroxi ne 175 mcg tablet 2022 023 [facility], [address] [place], [address], 3 09:13:52 prednisone 20 mg tablet [address], [address] [place] [address], [address], 3 08:57:05 tizanidine 4 mg tablet 2022 023 [facility], [address] [place] [address], [address], 3 15:42:23 tramadol 50 mg tablet [address], [address] [place] [address], [address], 3 08:57:11 Flonase Allergy Relief 50 mcg/actuati on nasal spray,suspe nsion 2022 023 [facility], [address] [place] [address], [address], 3 15:04:41 Vitamin D3 125 mcg (5,000 unit) tablet 2022 023 [facility], [address] [place] [address], [address], 3 09:05:51 Lantus U-100 Insulin 100 unit/mL subcutaneou s solution 2022 023 [facility], [address] [place] [address], [address], 3 15:04:43 Zithromax Z-Timothy 250 mg tablet 2022 023 [facility], [address] [place] [address], [address], 3 15:07:10 Ozempic 0.25 mg or 0.5 mg (2 mg/1.5 mL) subcutaneou s pen injector 2022 023 [email or web address] [facility], [address] [place] [address], [address], 3 14:39:36 Jardiance 10 mg tablet 2022 023 [email or web address] [facility], [address] [place] [address], [address], 3 08:56:45 Novolog Mix 70-30 FlexPen U-100 Insulin 100 unit/mL subcutaneou s pen 2022 023 ALBERT [facility], [address] [place] [address], [address], 3 15:47:04 Patient TargetsNo targets recorded. Patient InstructionsNo instructions recorded. Reason for Referral Orthopedic Surgeon Referral for Pain of left hip joint Referring Physician: Claude Gonzalez [facility] Medicine, Encounter Date: 04/09/2023 Physical Therapist Referral for Injury of rotator cuff Referring Physician: Claude Gonzalez [facility] Medicine, Encounter Date: 04/09/2023 Results Created Date Observation Date Name Description Value Unit Range Abnormal Flag Note LastModifiedBy Organization Detail LastModifiedTime 12/28/1912/28/2022 HEMOG LOBIN A1C glycosylated hemoglobin A1C 9.4 % 4.5-6. 2 high Not Available [facility] (Lab Registration) [address] [place], [address], 12/28/2022 17:34:33 12/28/19 23 12/28/2022 HEMOG LOBIN A1C estimated average glucose 223 mg/dL 82-131 high Not Available [facility] (Lab Registration) [address] [place], [address], 12/28/2022 17:34:33 12/28/19 23 12/28/2022 HEMOG LOBIN A1C note Unles s other ford noted testi ng perfo rmed at: [facility] [address] [facility] [address] [phone] Mando flynn MD CLIA: [id number] Not Available [facility] (Lab Registration) [address] [place], [address], 12/28/2022 17:34:33 04/09/20 23 04/09/2023 XR, shoul lakshmi [facility] [address] [facility] [place] [address] Phone: Fax: Name: MUKUND ANDREWS Exam Date: : [birth year] Age 43 Gender : F Access ion: [id number] Physic marvin: RENU GONZALEZ Facili ty: [facility] Facili ty HSV: Outpat ient Exam: SHLDR 3V LT Left should er THREE VIEW HISTOR Y: Pain. FINDIN GS: Three views show no eviden ce of an acute, displa pam fractu re or disloc ation of the visual ized bony irving ecture . There are mild degene rative change s. Findin gs sugges tive of calcif ic tendin itis. If rodrigue carlson consid er furthe r evalua tion with MRI. IMPRES RACHID: No acute osseou s change s. Dictat ed By: ZAINAB RAY Transc ribed By: ZAINAB RAY Transc ribed On: 023 4:17 PM Electr onical ly signed by: ZAINAB RAY 023 Thank you for referr ing MUKUND ANDREWS to [facility]. Legall y authen ticate d by POPE ZAINAB Oscar DO 04-09 16:17: 29 CC'ed Logic: Orderi ng Provid er: CARLOS SEARS NDE CC Provid er: CARLOS MAJANO Attend ing Provid er: CARLOS MAJANO Referr ing Provid er: CARLOS SEARS NDE Admitt ing Provid er: [facility] [address] [place], [address], 04/10/2023 16:39:06 04/09/20 23 04/09/2023 XR, hip, unila teral , 2 or 3 view [facility] [address] [facility] [place] [place] [address] Phone: Fax: Name: MUKUND ANDREWS Exam Date: : [birth year] Age 43 Gender : F Access ion: [id number] Physic marvin: RENU GONZALEZ Facili ty: [facility] Facili ty HSV: Outpat ient Exam: HIP LT 2V Left hip TWO VIEW HISTOR Y: Pain. FINDIN GS: Two views show no eviden ce of an acute, displa pam fractu re or disloc ation of the visual ized bony irving ecture . There are mild degene rative change s. If rodrigue carlson consid er furthe r evalua tion with MRI. IMPRES RACHID: No acute osseou s change s. Dictat ed By: ZAINAB RAY Transc ribed By: ZAINAB RAY Transc ribed On: 023 4:19 PM Electr onical ly signed by: ZAINAB RAY 023 [facility] Legall y authen ticate d by POPE ZAINAB Oscar DO 04-09 16:19: 28 CC'ed Logic: Orderi ng Provid er: CARLOS SEARS NDE CC Provid er: CARLOS SEARS NDE Attend ing Provid er: CARLOS MAJANO Referr ing Provid er: CARLOS SEARS NDE Admitt ing Provid er: CARLOS MAJANO [facility] (Radiology) [address] [place], [address], 04/10/2023 16:38:42 Result Notes Documentation Provider Name and Address Organization Details Recorded Time Xr, Shoulder : [address] [place] [address] Name: MUKUND AREVALO Exam Date: 04/09/2023 : 1980 Age 43 Gender: F Physician: CLAUDE GONZALEZ Facility: [facility] Facility HSV: Outpatient Exam: SHLDR 3V LT Left shoulder THREE VIEW HISTORY: Pain. FINDINGS: Three views show no evidence of an acute, displaced fracture or dislocation of the visualized bony architecture. There are mild degenerative changes. Findings suggestive of calcific tendinitis. If warranted consider further evaluation with MRI. IMPRESSION: No acute osseous changes. Dictated By: ZAINAB RAY Transcribed By: ZAINAB RAY Transcribed On: 04/09/2023 4:17 PM Electronically signed by: ZAINAB RAY 04/09/2023 Thank you for referring MUKUND AREVALO to [facility]. Legally authenticated by POPE ZAINAB Oscar DO 2023-04-09 16:17:29 CC'ed Logic: Ordering Provider: CARLOS BRIDGES CC Provider: CARLOS BRIDGES Attending Provider: CARLOS BRIDGES Referring Provider: CARLOS BRIDGES Admitting Provider: CARLOS Krueger [facility] 04/10/2023 16:39:06 Xr, Hip, Unilateral, 2 Or 3 View : [address] [place] [address] Name: MUKUND AREVALO Exam Date: 04/09/2023 : 1980 Age 43 Gender: F Physician: CLAUDE GONZALEZ Facility: [facility] Facility HSV: Outpatient Exam: HIP LT 2V Left hip TWO VIEW HISTORY: Pain. FINDINGS: Two views show no evidence of an acute, displaced fracture or dislocation of the visualized bony architecture. There are mild degenerative changes. If warranted consider further evaluation with MRI. IMPRESSION: No acute osseous changes. Dictated By: ZAINAB RAY Transcribed By: ZAINAB RAY Transcribed On: 04/09/2023 4:19 PM Electronically signed by: ZAINAB RAY 04/09/2023 Thank you for referring MUKUND AREVALO to [facility]. Legally authenticated by POPE ZAINAB Oscar DO 2023-04-09 16:19:28 CC'ed Logic: Ordering Provider: CARLOS BRIDGES CC Provider: CARLOS BRIDGES Attending Provider: CARLOS BRIDGES Referring Provider: CARLOS BRIDGES Admitting Provider: CARLOS BRIDGES Nevaeh Pardini [place], [place] [facility] [place] 04/10/2023 16:38:42 Problems Name Problem SNOMED Code Status Onset Date Resolution Date Notes Provider Name and Address Organization Details Recorded Time Hypothyroi dism 86243409 Active 2021 Nevaeh Pardini [place], [place] [facility] [place] [facility] [place] 2 10:35:45 Type 2 diabetes mellitus 29729560 Active 2021 Nevaeh Pardini [place] [facility] [place] 2 10:35:53 Long-term current use of insulin 653377345 Active 2021 Nevaeh Pardini [place] [place] 2 09:17:10 Lymphadeno jm 37101629 Active 2021 Nevaeh Pardini [place] [place] 2 09:17:25 Chronic fatigue syndrome 98991577 Active 2021 Nevaeh Pardini [place] [place] 2 09:17:40 Hyperlipid emia 06413307 Active 2021 Nevaeh Pardini [place] [place] 2 09:17:51 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 Nevaeh Pardini [place] [place] 2 09:18:08 Obesity 035270419 Active 2022 Claude Gonzalez MD [address] [place] [address], [address] [place] [address] , [place] [facility] [place] 3 15:45:01 Allergic rhinitis 69163349 Active 2022 Claude Gonzalez MD [address] [place] [address], [address] [place] [address] , [place] [facility] [place] & [place] 3 14:53:32 Injury of rotator cuff 558998055 Active 2022 Claude Gonzalez MD [address] [place] [address], [address] [place] [address] , [place] [facility] [place] 3 15:27:23 Pain of left hip joint 8204100920093 00 Active 2022 Claude Gonzalez MD [address] [place] [address] , [place] [facility] [place] & [place] 3 15:27:34 Problem Notes None recorded. Procedures Surgical History Date Name Laterality Status Provider Name and Address Organization Details Recorded Time 04/09/20 23 Most Recent Mammogram completed Nevaeh Pardini [place] [facility] [place] 04/09/2023 15:25:53 10/04/20 22 Toenail avulsion completed Claude Gonzalez MD [address] [place] [address], [address] [place] [address], [place] [facility] [place] 10/04/2022 12:48:48 section completed Nevaeh Pardini [place] [facility] [place] 09/17/2022 10:37:17 Cholecystectomy completed Nevaeh Pardini [place] [facility] [place] 09/17/2022 10:37:24 Imaging Results None recorded. Procedure Notes None recorded. Medical Equipment None Reported. Allergies Allergen ID Allergen Name Allergen Category Reaction Reaction Severity Criticality Documentation Date Start Date Code Code System Note Provider Name and Address Organization Details Recorded Time 99937 Product containin g penicilli n (product) medicatio n Not available Not available Not available 09/17/2022 11154 8001 SNOMED Nevaeh Krueger null, [place] - [facility] - [place] & [place] 2 10:35:35 Medications Name Sig Start Date Stop Date Status Note LastModified by Organization Details LastModified Time multivitami n tablet 06/13 completed Not Available Not Available Not Available levothyroxi ne 175 mcg tablet TAKE 1 TABLET BY MOUTH EVERY DAY FOR 90 DAYS active Not Available Not Available No t Available promethazin e-DM 6.25 mg-15 mg/5 mL oral syrup TAKE 5 TO 10ML BY MOUTH EVERY NIGHT AT BEDTIME NEEDED active Not Available Not Available No t Available doxycycline hyclate 100 mg capsule TAKE 1 CAPSULE BY MOUTH TWICE DAILY FOR 14 DAYS 10/04 completed Not Available Not Available Not Available tizanidine 2 mg tablet 1-2 TABS ORALLY EVERY 8 HOURS NEEDED FOR MUSCLE SPASM 30 DAYS active Not Available Not Available No t Available azithromyci n 250 mg tablet TAKE 2 TABLETS BY MOUTH TODAY, THEN TAKE 1 TABLET DAILY FOR 4 DAYS DIRECTED active Not Available Not Available No t Available ibuprofen 800 mg tablet 06/13 completed Not Available Not Available Not Available tizanidine 4 mg tablet TAKE 1 TABLET BY MOUTH TWICE A DAY active Not Available Not Available No t Available benzonatate 200 mg capsule TAKE 1 CAPSULE BY MOUTH THREE TIMES A DAY FOR 10 DAYS active Not Available Not Available No t Available ondansetron HCl 4 mg tablet 06/13 completed Not Available Not Available Not Available prednisone 20 mg tablet Take 2 tablets every day by oral route for 7 days. 06/13 completed Not Available Not Available Not Available prednisone 5 mg tablet TAKE 6 TABLETS ON DAY 1, 5 ON DAY 2, 4 ON DAY 3, 3 ON DAY 4, 2 ON DAY 5, 1 ON DAY 6 active Not Available Not Available No t Available Lantus U-100 Insulin 100 unit/mL subcutaneou s solution INJECT 26 UNITS SUBCUTANE OUSLY EVERY DAY 2022 active Not Available Not Available Not Avai lable tramadol 50 mg tablet Take 1 tablet twice a day by oral route as needed. 06/13 completed Not Available Not Available Not Available rizatriptan 10 mg disintegrat ing tablet TAKE 1 TABLET BY MOUTH EVERY DAY NEEDED active Not Available Not Available No t Available omeprazole 20 mg capsule,del ayed release TAKE 1 CAPSULE BY MOUTH EVERY DAY active Not Available Not Available No t Available methylpredn isolone 4 mg tablets in a dose pack TAKE 6 TABLETS ON DAY 1 DIRECTED ON PACKAGE AND DECREASE BY 1 TAB EACH DAY FOR A TOTAL OF 6 DAYS active Not Available Not Available No t Available albuterol sulfate HFA 90 mcg/actuati on aerosol inhaler INHALE 1 PUFF INTO THE LUNGS EVERY 4 HOURS NEEDED FOR 30 DAYS active Not Available Not Available No t Available fluticasone propionate 50 mcg/actuati on nasal spray,suspe nsion USE 1 SPRAY IN EACH NOSTRIL ONCE DAILY DIRECTED 2022 active Not Available Not Available Not Avai lable cholecalcif lani (vitamin D3) 125 mcg (5,000 unit) capsule 06/13 completed Not Available Not Available Not Available doxycycline hyclate 100 mg tablet TAKE 1 TABLET BY MOUTH TWICE A DAY FOR 10 DAYS active Not Available Not Available No t Available oxycodone 5 mg tablet 06/13 completed Not Available Not Available Not Available Novolog Mix 70-30 FlexPen U-100 Insulin 100 unit/mL subcutaneou s pen Inject 40 units every day by subcutane ous route for 90 days. 01/09 completed Not Available Not Available Not Available atomoxetine 10 mg capsule TAKE 1 CAPSULE BY MOUTH EVERY DAY DIRECTED active Not Available Not Available No t Available atomoxetine 18 mg capsule TAKE 1 CAPSULE BY MOUTH EVERY DAY IN THE MORNING WITH A MEAL active Not Available Not Available No t Available Alcohol Prep Pads 06/13 completed Not Available Not Available Not Available multivitami n 1 daily active Not Available Not Available Not Available Novolog Mix 70-30 U-100 Insuln 40 units every day 04/03 completed Not Available Not Available Not Available Lantus Solostar U-100 Insulin 100 unit/mL (3 mL) subcutaneou s pen 04/03 completed Not Available Not Available Not Available guanfacine ER 1 mg tablet,exte nded release 24 hr TAKE 1 TABLET BY MOUTH EVERY DAY 09/20 completed Not Available Not Available Not Available Vitamin D3 125 mcg (5,000 unit) tablet Take 1 tablet every day by oral route for 90 days. 2022 active Not Available Not Available Not Avai lable BD Ultra-Fine Malina Pen Needle 32 gauge x /32 06/13 completed Not Available Not Available Not Available Jardiance 10 mg tablet TAKE 1 TABLET BY MOUTH EVERY DAY 06/13 completed Not Available Not Available Not Available Ozempic 0.25 mg or 0.5 mg (2 mg/1.5 mL) subcutaneou s pen injector Inject by subcutane ous route for 28 days. 04/03 completed Not Available Not Available Not Available [facility] COVID-19 Antigen Rapid Home Test kit USE DIRECTED PER PACKAGE INSTRUCTI ONS active Not Available Not Available No t Available Ozempic 0.25 mg or 0.5 mg (2 mg/3 mL) subcutaneou s pen injector active Not Available Not Available Not Available Vitals Date Recorded Body height Body mass index (BMI) Body weight Body temperature Oxygen saturation Oxygen saturation in Arterial blood by Pulse oximetry Heart rate Respiratory rate Systolic blood pressure Diastolic blood pressure Provider Name and Address Organization Details Last Updated DateTime 3 160.02 cm 41.5 kg/m2 850413. 61 g 97.9 [degF] 97 % 97 % 89 /min 16 /min 132 mm[Hg] 84 mm[Hg] Nevaeh Pardini [place] [facility] 3 15:20:53 Date Recorded Body height Body mass index (BMI) Body weight Body temperature Oxygen saturation Oxygen saturation in Arterial blood by Pulse oximetry Heart rate Respiratory rate Systolic blood pressure Diastolic blood pressure Provider Name and Address Organization Details Last Updated DateTime 3 160.02 cm 41 kg/m2 443332. 56 g 97.9 [degF] 97 % 97 % 81 /min 16 /min 130 mm[Hg] 90 mm[Hg] Nevaeh Pardini [place] [facility] & [place] 3 15:08:47 Date Recorded Body height Body mass index (BMI) Body weight Body temperature Oxygen saturation Oxygen saturation in Arterial blood by Pulse oximetry Heart rate Respiratory rate Systolic blood pressure Diastolic blood pressure Provider Name and Address Organization Details Last Updated DateTime 3 160.02 cm 39.7 kg/m2 081257. 69 g 98 [degF] 98 % 98 % 89 /min 16 /min 133 mm[Hg] 92 mm[Hg] Nevaeh Pardini [place] [facility] & [place] 3 14:39:11 Date Recorded Body height Body mass index (BMI) Body weight Body temperature Oxygen saturation Oxygen saturation in Arterial blood by Pulse oximetry Heart rate Respiratory rate Systolic blood pressure Diastolic blood pressure Provider Name and Address Organization Details Last Updated DateTime 3 160.02 cm 39 kg/m2 29001.3 2 g 97.3 [degF] 97 % 97 % 80 /min 16 /min 128 mm[Hg] 85 mm[Hg] Nevaeh ZAMORANO [facility] & [place] 3 15:06:51 Date Recorded Body height Body mass index (BMI) Body weight Body temperature Oxygen saturation Oxygen saturation in Arterial blood by Pulse oximetry Heart rate Respiratory rate Systolic blood pressure Diastolic blood pressure Provider Name and Address Organization Details Last Updated DateTime 3 160.02 cm 35.4 kg/m2 76887.7 6 g 97.6 [degF] 98 % 98 % 67 /min 16 /min 115 mm[Hg] 75 mm[Hg] Tremayne ZAMORANO [facility] & [place] 3 08:53:58 Social History Question Answer Notes LastModified by Managed Methods Details LastModified Time Tobacco Smoking Status Never Smoker Nevaeh beckham [place] [facility] & [place] 09/17/2022 10:37:05 Do You Have An Advance Directive? Yes Information not available 09/20/2022 Are You Blind Or Do You Have Difficulty Seeing? No Information not available 09/20/2022 What Is Your Level Of Caffeine Consumption? Occasional [email or web address] Information not available 10/08/2022 What Was The Date Of Your Most Recent Tobacco Screening? 09/20/2022 Information not available 09/20/2022 Are You Passively Exposed To Smoke? No Information not available 09/20/2022 Has Tobacco Cessation Counseling Been Provided? No [email or web address] Information not available 10/08/2022 How Many Years Have You Smoked Tobacco? 0 Information not available 09/20/2022 Sex: Female Functional Status Question Answer Note LastModified by Organizat ion Details LastModified Time Do you use any illicit or recreational drugs? No Information not available 09/17/2022 Do you or have you ever used any other forms of tobacco or nicotine? No [email or web address] Information not available 10/08/2022 What is your level of alcohol consumption? Moderate Information not available 09/20/2022 What is your exercise level? Moderate Information not available 09/20/2022 Mental Status Question Answer Note LastModified by Organization D etails LastModified Time Do you feel stressed (tense, restless, nervous, or anxious, or unable to sleep at night)? [id number] Information not available 09/20/2022 Family History Relationship Description Onset Age of this Age Resolved Age Notes LastModified by Organization Details LastModified Time Father No current problems or disability CHART_MERGE Not available 14:13:30 Mother No current problems or disability CHART_MERGE Not available 14:13:30 Notes:patient was adopted, h as no known information about parents Medical History Condition Response Diabetes Y Thyroid Problems Y Gynecological History Statement/Question Response Flow Moderate Date of LMP 09/16/2022 Sexually Active? Y Menses Monthly Y Duration of Flow (days) 5 Current Control Method Fertility A wareness Method Most Recent Mammogram 04/09/2023 Obstetrics History GPAL:G 0 P 0 0 0 0 Immunizations Vaccine Type Date Status Note Provider Nam e and Address Organization Details Recorded Time COVID-19, mRNA, LNP-S, PF, 100 mcg/0.5mL dose or 50 mcg/0.25mL dose 12/05/2021 completed Nevaeh Pardini [place], [place] [facility] [place] 10/04/2022 12:22:07 Influenza, MDCK, quadrivalent, PF 09/23/2018 completed Nevaeh Pardini [place] [facility] [place] 10/04/2022 12:22:07 COVID-19 vaccine, vector-nr, rS-Ad26, PF, 0.5 mL 01/27/2021 completed Nevaeh Pardini [place] [facility] [place] 10/04/2022 12:22:07 Past Encounters Encounter ID Performer Location Encounter Start Date Encounter Closed Date Diagnosis/Indication Diagnosis SNOMED-CT Code Diagnosis ICD10 Code Diagnosis Note [id number] MD ronal Agrawal[address] [address] 09/20/2022 10:49:06 09/20/2022 14:52:06 Exposure to lead 2502179285 3952901 Z77.011 patient states that she has been exposed to lead. 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 Will order blood work today. Type 2 brynn betes mellitus 26682617 E11.9 Will do lab work today. Hypothyroidism 24014695 E03.9 WILL OBTAIN LAB WORK TODAY. Acute pharyngitis 772373 003 J02.9 Will put patient on doxycyclin e as well as on a Medrol Dosepak. Sore throat 759783954 J0 2.9 Lymphadenopathy 07691659 R59.0 Will treat infection and follow-up. We need to make sure with follow this through to is logical conclusion . If lymph nodes remain swollen we may need to refer patient for surgical consultati on. [id number] MD colton Agrawal[address] [address] 10/04/2022 11:36:05 10/04/2022 13:57:17 Ingrowing nail of toe of right foot [id number] 6036531 L60.0 [id number] Claude Gonzalez MD [address] [address] 10/08/2022 08:40:39 10/08/2022 08:57:13 Postoperative visit 701805230 Z09 CONTINUE WITH CURRENT THERAPY. FOR FOLLOW-UP NEEDED. [id number] Claude Gonzalez MD [address] [address] 12/28/2022 14:52:47 12/28/2022 15:52:15 Type 2 diabetes mellitus 68308886 E11.9 Will do lab work today. Obesity 309090445 E66.9 patient's BMI is 41.45. She is obese. Will write a letter of support for her bariatric surgery. Long-term current use of insulin 893834282 Z79.4 patient needs A refill of her NovoLog. Hypothyroidism 46572567 E03.9 Patient to continue with her levothyrox ine. [id number] Claude Gonzalez MD [address] [address] 01/09/2023 14:57:22 01/09/2023 16:13:42 Hyperlipidemia 60420212 E78.5 Hypothyroidism [id number] E03.9 Patient to continue with her levothyrox ine. Obesity 027937031 E66.9 patient's BMI is 41.45. She is obese. Will write a letter of support for her bariatric surgery. Type 2 brynn betes mellitus 10816050 E11.9 PATIENT'S A1C IS OVER 9. WE HAVE ADJUSTED HER REGIMEN FOLLOWSSHE IS TO INCREASE THE LANTUS INSULIN TO 40 UNITS A DAYADD JARDIANCE 10 MG A DAY ( WE HAVE GIVEN ENOUGH SAMPLES FOR 2 WEEKS)WILL PRESCRIBE OZEMPIC. [id number] Claude Gonzalez MD [address] [address] 04/03/2023 14:29:20 04/03/2023 14:48:49 Allergic rhinitis 82164771 J30.9 will start patient on Flonase. Long-term current use of insulin 117712414 Z79.4 patient needs A refill of her NovoLog. Obesity 117536638 E66.9 Bariatric surgery scheduled for next week. Vitamin D deficiency 347 12966 E55.9 Acute sinusitis 86740224 J01.90 [id number] Claude Gonzalez MD [facility] [address] [facility] [place] [address] 04/09/2023 14:58:04 04/09/2023 15:40:24 Screening mammography of bilateral breasts [id number] 82291 Z12.31 Injury of rotator cuff [id number] S46.002A will send patient for physical therapy. I am going to put her on steroids and antibiotic s. If her pain is no better we might need to consider MRI. Pain of le ft hip joint [id number] 95643 M25.552 Patient complains of chronic left hip pain. Pain is intermitte nt. It is currently not too bad. Will refer her to orthopeddevang cooley [id number] Claude Gonzalez MD [facility] [address] [address] 06/13/2023 08:32:19 06/13/2023 09:08:59 Type 2 diabetes mellitus [id number] E11.9 patient recently had gastric bypass surgery. April 15, 2023. She is lost a significan t amount of weight since the surgery. Her medication list has been adjusted accordingl y. We have updated the current medication list. Patient is on Lantus 20 units daily for her diabetes. Vitamin D deficiency 347 72857 E55.9 Hypothyroidism 75625106 E03.9 Patient to continue with her levothyrox ine. Long-term current use of insulin 527746456 Z79.4 patient needs A refill of her NovoLog. Allergic rhinitis 212947 04 J30.9 will start patient on Flonase. Injury of rotator cuff [id number] S46.002A will send patient for physical therapy. I am going to put her on steroids and antibiotic s. If her pain is no better we might need to consider MRI. Gastroesop hageal reflux disease 823625178 K21.9 Obesity 471369572 E66.9 patient is status post gastric bypass surgery. She has lost about 40 lb since the surgery. Health Concerns Section Related Observation LastModified by Organization Radha ls LastModified Time None Recorded Concern Status LastModified by Organization Details LastModified Time None Recorded Advance Directives Directive Y: Payers Insurance Date Sequence Insurance Name Policy Number Policy Martel Covered Member ID Martel Member ID Guarantor Name 09/24/2024 1 [employer] ([place]) Mukund Fightmaster [id number] Mukund Fightmaster 09/24/2024 2 *SELF PAY* Sa marcelo Fightmaster 06/13/2023 1 PASSP[employer] BY [employer] (MEDICAID REPLACEMENT - HMO) [id number] Mukund Evelyne Fightmaster [id number] Mukund Fightmaster 09/14/2022 1 [employer]) [id number] Mukund Fightmaster [id number] Mukund Fightmaster 09/24/2024 1 [employer] [place] - [place] - [place] - [place] - [place] - [place] - [place] (MEDICARE REPLAC[place]/A DVANTAGE - HMO) Mukund Arevalo [id number] Mukund Arevalo 09/14/2022 1 [place] Mukund Arevalo [id number] Mukund Arevalo Notes Date Note Type Note Provider Name and Address Organization Details Recorded Time 12/28/2022 text/html patient presents today to talk about her weight gain. She is in the process of being evaluated for bariatric surgery. She states that she needs a letter of support. Patient is diabetic. She is on insulin. She also needs her A1c checked today. Claude Gonzalez MD [address] [place] [address], [phone] [place] [address] & [place] 12/31/2022 08:09:27 01/09/2023 text/html PATIENT PRESENTS TODAY FOR FOLLOW-UP ON HER LAB WORK. HER A1C IS HIGH. SHE HAS NOT BEEN CONTROLLING HER BLOOD SUGAR APPROPRIATELY. Claude Gonzalez MD [address] [place] [address], [phone] [place] [address] & [place] 01/09/2023 15:31:49 04/03/2023 text/html Patient presents today complaining of symptoms suggestive of a sinus infection. She has a history of seasonal allergies that she states is flaring up. She is coughing productive sputum that is yellowish-green in color. She also has sinus tenderness.Patient is a prescription for vitamin-D due to a vitamin-D deficiency.She also mentions that she will be having a gastric bypass done in the next couple of weeks. Claude Gonzalez MD [address] [place] [address], [phone] & [place] 04/03/2023 14:57:41 04/09/2023 text/html SDS. PATIENT STATES THAT SHE INJURED HER LEFT SHOULDER OVER THE WEEKEND. SHE ALSO HAS A HISTORY OF CHRONIC LEFT HIP PAIN THAT IS FLARED UP. Claude Gonzalez MD [address] [place] [address], [phone] & [place] 04/09/2023 15:52:38 06/13/2023 text/html patient presents for follow-up. She has lost significant amount of weight. She had gastric bypass surgery on the 15 of April. She states that she was told that she has a low vitamin-D level. Her levels were 25.5 on 06/04/2023. Claude Gonzalez MD [address] [place] [address], [phone] & [place] 06/13/2023 15:51:23 OBGyn Episode No OBEpisode recorded.
--- NOTE | 2025-05-12 08:36 | MM_ITS ---
FINAL REPORT CLINICAL HISTORY: post bx FINDINGS: MAMMOGRAM RIGHT TECHNIQUE: Standard digital 2-D views COMPARISON: 03/17/2025 and 04/15/2025 DENSITY: There are scattered areas of fibroglandular density FINDINGS: Post biopsy marker clip is noted to be in satisfactory position. Postbiopsy changes are noted. IMPRESSION: Biopsy marker clip in good position ASSESSMENT: A post-procedure mammogram is used to confirm the position and deployment of a breast tissue marker after a biopsy RECOMMENDATION: Pending histopathology evaluation Authenticated and ERN
== END 2025-05-12 23:59 | disposition home or self-care (01) ==
LOC: RAD 07:41
PROVIDERS: PCP Nurse Practitioner Family; Visit Provider Nurse Practitioner Family
DX: N60.31 Fibrosclerosis of right breast (principal); R92.30 Dense breasts, unspecified
CPT/HCPCS: 19083; 77065